=== PATIENT | female | born 1945 | race African-American/Black ===

== ENCOUNTER 2017-10-19 15:33 | Emergency (ER) | payer MEDICARE, MEDICAID ==
[~2017-10-19] VITALS: Ht 157.5 cm; Wt 69.0 kg
[~2017-10-19 15:33] MED LIST: ALBU6.7H2; ALLO100T PO; AMLO10TA4 PO; AP25 PO; ASCO-339 PO; ASPI-867 PO; ATOR20TA PO; CALC600T12 PO; CARV12.545 PO; COLC0.6T66 PO; FERR325T23 PO; FISH OIL PO; FLUT1DIS3 IH; FOLI-43 PO; FURO-151 PO; LORA-458 PO; MONT10TA24 PO; POTA10TA15 PO; VIT D2 PO; [UNRECOGNIZED DRUG - OTHER] PO
[2017-10-19] MEDS ORDERED: CYCLOBENZAPRINE 10MG TABLET PO ONE (18:15)
[2017-10-19 18:21] VITALS: BP 123/58
== END 2017-10-19 22:20 | disposition home or self-care (01) ==
LOC: ER 16:28
DX: M62.830 Muscle spasm of back (principal); I10 Essential (primary) hypertension; E11.9 Type 2 diabetes mellitus without complications; J45.909 Unspecified asthma, uncomplicated; Z88.0 Allergy status to penicillin; Z88.5 Allergy status to narcotic agent; Z79.82 Long term (current) use of aspirin
CPT/HCPCS: 76775; 99284

== ENCOUNTER 2017-11-08 01:54 | Emergency (ER) | payer MEDICARE, MEDICAID ==
[~2017-11-08] VITALS: Ht 157.5 cm; Wt 70.0 kg
[~2017-11-08 01:54] MED LIST changes: -ALBU6.7H2; +ALBU6.7H3
[2017-11-08] MEDS ORDERED: IPRATROPIUM BROMIDE (0.02%) 0.5MG/2.5ML NEB HHN STA (03:04)
[2017-11-08] MEDS ORDERED: ALBUTEROL (0.083%) 2.5MG/3ML NEB HHN STA (03:04)
[2017-11-08 03:49] LABS: HEMATOCRIT. 37.7 % (36.0-48.0); HEMOGLOBIN. 12.1 g/dL (12.0-16.0); MEAN CORPUSCULAR HEMOGLOBIN 23.8 pg (28.0-32.0); MEAN PLATELET VOLUME 8.9 fl (7.4-10.4); PLATELET 171 x1000/uL (130-400); RED CELL DISTRIBUTION WIDTH 17.5 % (11.6-14.6)
[2017-11-08 04:03] LABS: CARBON DIOXIDE 28 mEq/L (21-32); CHLORIDE 104 mEq/L (98-107); TROPONIN I < 0.02 ng/mL (0.00-0.04)
[2017-11-08] MEDS ORDERED: ALBUTEROL (0.5%) 2.5MG/0.5ML NEB HHN ONE (04:20)
[2017-11-08 04:40] VITALS: BP 132/65
[2017-11-08 05:13] LABS: PLATELET ESTIMATE NORMAL
== END 2017-11-08 06:15 | disposition home or self-care (01) ==
LOC: ER 01:54
DX: R05 Cough (principal); R06.02 Shortness of breath; R06.2 Wheezing; E11.9 Type 2 diabetes mellitus without complications; E78.00 Pure hypercholesterolemia, unspecified; I10 Essential (primary) hypertension; Z79.82 Long term (current) use of aspirin; Z88.0 Allergy status to penicillin; Z88.5 Allergy status to narcotic agent; Z95.0 Presence of cardiac pacemaker; Z95.810 Presence of automatic (implantable) cardiac defibrillator; Z98.890 Other specified postprocedural states
CPT/HCPCS: 36415; 71010; 80048; 83880; 84484; 85025; 93005; 94640; 99285; J7611

== ENCOUNTER 2019-01-13 08:48 | Emergency (ER) | payer MEDICARE, MEDICAID ==
[~2019-01-13] VITALS: Ht 157.5 cm; Wt 74.0 kg
[~2019-01-13 08:48] MED LIST changes: -ALBU6.7H3; +ALBU6.7H9; +ASA5EC PO; -ASPI-867 PO
[2019-01-13] MEDS ORDERED: HYDROCODONE/ACETAMINOPHEN 5/325MG TABLET PO STA (15:15)
[2019-01-13 16:54] LABS: BASOPHILS % 0.6 % (0.0-2.0); EOSINOPHILS % 2.7 % (0.0-5.0); HEMATOCRIT. 43.9 % (36.0-48.0); HEMOGLOBIN. 13.8 g/dL (12.0-16.0); LYMPHOCYTES % 26.6 % (20.0-50.0); MEAN CORPUSCULAR HEMOGLOBIN 23.2 pg (28.0-32.0); MEAN CORPUSCULAR VOLUME 73.8 fL (81.0-99.0); MEAN PLATELET VOLUME 8.7 fl (7.4-10.4); MONOCYTES % 10.2 % (2.0-8.0); NEUTROPHILS % 59.9 % (40.0-76.0); PLATELET 215 x1000/uL (130-400); RED BLOOD CELL COUNT 5.95 mill/uL (4.2-5.4); RED CELL DISTRIBUTION WIDTH 15.6 % (11.6-14.6)
[2019-01-13 16:56] LABS: CHLORIDE 105 mEq/L (98-107)
[2019-01-13 18:47] LABS: CLARITY URINE CLEAR (CLEAR); COLOR URINE YELLOW (YELLOW); KETONES URINE NEGATIVE (NEGATIVE); LEUKOCYTE ESTERASE URINE 2+ (NEGATIVE); NITRITE URINE POSITIVE (NEGATIVE); OCCULT BLOOD URINE NEGATIVE (NEGATIVE); PROTEIN URINE NEGATIVE (NEGATIVE); SPECIFIC GRAVITY URINE 1.013 (1.005-1.030); UROBILINOGEN URINE 0.2 E.U./dL (0.2-1.0)
[2019-01-13 20:01] VITALS: BP 143/76
== END 2019-01-13 20:02 | disposition home or self-care (01) ==
LOC: ER 09:05
DX: N39.0 Urinary tract infection, site not specified (principal); I11.9 Hypertensive heart disease without heart failure; E11.9 Type 2 diabetes mellitus without complications; E78.00 Pure hypercholesterolemia, unspecified; Z88.0 Allergy status to penicillin; Z88.5 Allergy status to narcotic agent; Z79.899 Other long term (current) drug therapy
CPT/HCPCS: 36415; 74176; 99284

== ENCOUNTER 2020-09-12 18:08 | Emergency (ER) | payer MEDICARE, MEDICAID ==
[~2020-09-12] VITALS: Ht 157.5 cm; Wt 72.0 kg
[~2020-09-12 18:08] MED LIST changes: -ASA5EC PO; +ASPI325T85 PO; -LORA-458 PO; +LORA10TA60 PO; -MONT10TA24 PO; +MONT10TA26 PO
[2020-09-12] MEDS ORDERED: ACETAMINOPHEN 325MG TABLET PO STA (19:12)
[2020-09-12 19:39] LABS: CLARITY URINE CLEAR (CLEAR); COLOR URINE YELLOW (YELLOW); KETONES URINE TRACE (NEGATIVE); LEUKOCYTE ESTERASE URINE 2+ (NEGATIVE); NITRITE URINE NEGATIVE (NEGATIVE); OCCULT BLOOD URINE NEGATIVE (NEGATIVE); PH URINE 5.5 (4.5-8.0); PROTEIN URINE 1+ (NEGATIVE); SPECIFIC GRAVITY URINE 1.027 (1.005-1.030)
[2020-09-12 20:14] LABS: BASOPHILS % 0.4 % (0.0-2.0); EOSINOPHILS % 3.4 % (0.0-5.0); HEMATOCRIT. 41.7 % (36.0-48.0); HEMOGLOBIN. 13.2 g/dL (12.0-16.0); LYMPHOCYTES % 32.2 % (20.0-50.0); MEAN CORPUSCULAR HEMOGLOBIN 23.2 pg (28.0-32.0); MEAN CORPUSCULAR VOLUME 73.7 fL (81.0-99.0); MONOCYTES % 8.7 % (2.0-8.0); NEUTROPHILS % 55.3 % (40.0-76.0); PLATELET 186 x1000/uL (130-400); RED BLOOD CELL COUNT 5.67 mill/uL (4.2-5.4); RED CELL DISTRIBUTION WIDTH 15.2 % (11.6-14.6)
[2020-09-12 20:17] LABS: CHLORIDE 107 mEq/L (98-107)
[2020-09-12 20:19] LABS: PROTHROMBIN TIME 10.5 sec (9.6-11.0)
[2020-09-12 21:45] VITALS: BP 134/78
== END 2020-09-12 21:58 | disposition home or self-care (01) ==
LOC: ER 18:08
DX: N39.0 Urinary tract infection, site not specified (principal); M54.5 Low back pain; E11.9 Type 2 diabetes mellitus without complications; I10 Essential (primary) hypertension; Z79.899 Other long term (current) drug therapy; Z88.0 Allergy status to penicillin; Z88.5 Allergy status to narcotic agent; Z95.0 Presence of cardiac pacemaker
CPT/HCPCS: 36415; 74176; 80053; 81003; 85025; 99284

== ENCOUNTER 2021-08-21 15:49 | Emergency (ER) | payer MEDICARE, MEDICAID ==
[~2021-08-21] VITALS: Ht 157.5 cm; Wt 72.0 kg
[~2021-08-21 15:49] MED LIST changes: +ASPI-867 PO; -ASPI325T85 PO; +CALC-1139 PO; -CALC600T12 PO; -MONT10TA26 PO; +MONT10TA32 PO
[2021-08-21] MEDS ORDERED: HYDR99LO TP (18:24)
[2021-08-21 18:51] VITALS: BP 149/75
== END 2021-08-21 18:52 | disposition home or self-care (01) ==
LOC: ER 15:49
DX: L25.9 Unspecified contact dermatitis, unspecified cause (principal); E11.9 Type 2 diabetes mellitus without complications; I10 Essential (primary) hypertension; Z87.440 Personal history of urinary (tract) infections; Z95.0 Presence of cardiac pacemaker; F11.10 Opioid abuse, uncomplicated; Z79.899 Other long term (current) drug therapy; Z88.0 Allergy status to penicillin; Z88.5 Allergy status to narcotic agent
CPT/HCPCS: 99282

== ENCOUNTER 2021-09-08 09:10 | Inpatient (IN) | payer MEDICARE, MEDICAID ==
[~2021-09-08] VITALS: Ht 157.5 cm; Wt 72.6 kg
[~2021-09-08 09:10] MED LIST changes: +HYDR99LO TP
[2021-09-08] MEDS ORDERED: ACETAMINOPHEN 325MG TABLET PO STA (10:38)
[2021-09-08 11:40] LABS: BASOPHILS % 0.7 % (0.0-2.0); EOSINOPHILS % 1.7 % (0.0-5.0); HEMATOCRIT. 43.3 % (36.0-48.0); HEMOGLOBIN. 13.5 g/dL (12.0-16.0); LYMPHOCYTES % 18.8 % (20.0-50.0); MEAN CORPUSCULAR HEMOGLOBIN 22.9 pg (28.0-32.0); MEAN CORPUSCULAR VOLUME 73.5 fL (81.0-99.0); MEAN PLATELET VOLUME 8.5 fl (7.4-10.4); MONOCYTES % 11.3 % (2.0-8.0); NEUTROPHILS % 67.5 % (40.0-76.0); PLATELET 253 x1000/uL (130-400); RED BLOOD CELL COUNT 5.89 mill/uL (4.2-5.4)
[2021-09-08 11:47] LABS: CHLORIDE 107 mEq/L (98-107)
[2021-09-08 14:11] LABS: CLARITY URINE CLEAR (CLEAR); COLOR URINE YELLOW (YELLOW); KETONES URINE TRACE (NEGATIVE); LEUKOCYTE ESTERASE URINE 2+ (NEGATIVE); NITRITE URINE NEGATIVE (NEGATIVE); OCCULT BLOOD URINE NEGATIVE (NEGATIVE); PH URINE 5.5 (4.5-8.0); PROTEIN URINE NEGATIVE (NEGATIVE); SPECIFIC GRAVITY URINE 1.018 (1.005-1.030); UROBILINOGEN URINE 0.2 E.U./dL (0.2-1.0)
[2021-09-08] MEDS ORDERED: ASPIRIN 81MG TABLET PO ONE (14:15)
[2021-09-08] MEDS ORDERED: NITROGLYCERIN 0.4MG TABLET SL SL PRN (14:15)
[2021-09-08 14:25] LABS: D-DIMER 0.4 mg/L FEU (<0.50); PARTIAL THROMBOPLASTIN TIME 30.5 sec (23.4-31.0)
[2021-09-08] MEDS ORDERED: FUROSEMIDE 40MG/4ML VIAL IVP ONE (15:45)
[2021-09-08] MEDS ORDERED: ONDANSETRON HCL 4MG/2ML INJ IV PRN (16:30)
[2021-09-08] MEDS ORDERED: MAGNESIUM/ALUMINUM HYDROXIDE/SIMETHICONE 30ML UDC PO PRN (16:30)
[2021-09-08] MEDS ORDERED: ACETAMINOPHEN 325MG TABLET PO PRN (16:30)
[2021-09-08] MEDS ORDERED: IPRATROPIUM/ALBUTEROL 0.5-3(2.5)MG/3ML NEB NEB PRN (16:30)
[2021-09-08] MEDS ORDERED: DOCUSATE SODIUM 100MG CAPSULE PO PRN (16:30)
[2021-09-08] MEDS ORDERED: ACETAMINOPHEN 650MG SUPP PR PRN (16:30)
[2021-09-08] MEDS ORDERED: GUAIFENESIN 200MG/10ML SUGAR FREE UDC PO PRN (16:30)
[2021-09-08] MEDS ORDERED: NA PHOS,M-B/NA PHOS,DI-BA ENEMA 118ML PR PRN (16:30)
[2021-09-08] MEDS ORDERED: DIPHENHYDRAMINE 50MG/ML VIAL IV PRN (16:30)
[2021-09-08] MEDS ORDERED: LEVOFLOXACIN 500MG PREMIX 100 ML IV NR (16:30)
[2021-09-08] MEDS ORDERED: LORAZEPAM 0.5MG TABLET PO PRN (16:30)
[2021-09-08] MEDS ORDERED: HYDROCODONE/ACETAMINOPHEN 5/325MG TABLET PO PRN (16:30)
[2021-09-08] MEDS ORDERED: CLONIDINE 0.1MG TABLET PO PRN (16:30)
[2021-09-08] MEDS ORDERED: DEXTROSE 50% WATER 50ML SYRINGE IV PRN (17:00)
[2021-09-08] MEDS: BLOOD SUGAR DIAGNOSTIC STRIP TEST SCH (17:00)
[2021-09-08] MEDS: INSULIN LISPRO 100 UNITS/ML SUBCUT SCH ×2 (18:20→21:00)
[2021-09-08] MEDS ORDERED: FAMOTIDINE 20MG TABLET PO SCH (21:00)
[2021-09-08] MEDS ORDERED: ENOXAPARIN 30MG/0.3ML SYR SUBCUT SCH (21:00)
[2021-09-08] MEDS: GABAPENTIN 100MG CAPSULE PO SCH (22:00)
[2021-09-09 00:25] VITALS: BP 102/66
[2021-09-09 00:30] VITALS: BP 102/66
[2021-09-09 04:00] VITALS: BP 114/60
[2021-09-09] MEDS: GABAPENTIN 100MG CAPSULE PO SCH ×2 (06:00→13:57)
[2021-09-09] MEDS: BLOOD SUGAR DIAGNOSTIC STRIP TEST SCH ×2 (06:16→12:20)
[2021-09-09 06:23] LABS: BASOPHILS % 0.3 % (0.0-2.0); EOSINOPHILS % 0.9 % (0.0-5.0); HEMOGLOBIN. 13.2 g/dL (12.0-16.0); LYMPHOCYTES % 22.4 % (20.0-50.0); MEAN CORPUSCULAR HEMOGLOBIN 23.3 pg (28.0-32.0); MEAN CORPUSCULAR VOLUME 72.3 fL (81.0-99.0); MONOCYTES % 12.9 % (2.0-8.0); NEUTROPHILS % 63.5 % (40.0-76.0); PLATELET 237 x1000/uL (130-400); RED BLOOD CELL COUNT 5.67 mill/uL (4.2-5.4); RED CELL DISTRIBUTION WIDTH 14.5 % (11.6-14.6)
[2021-09-09 06:34] LABS: CHLORIDE 103 mEq/L (98-107)
[2021-09-09 06:52] LABS: HDL CHOLESTEROL 36 mg/dL (40-59); T4 FREE 0.94 ng/dL (0.76-1.46)
[2021-09-09 06:53] LABS: LDL CHOLESTEROL 122 mg/dL (5-100)
[2021-09-09 06:54] LABS: CREATINE KINASE 106 IU/L (26-192); CREATINE KINASE MB FRACTION < 1.0 ng/mL (0.5-3.6)
[2021-09-09] MEDS: INSULIN LISPRO 100 UNITS/ML SUBCUT SCH ×2 (07:50→12:45)
[2021-09-09 08:00] VITALS: BP 103/52
[2021-09-09] MEDS ORDERED: ASPIRIN 81MG EC TABLET PO SCH (09:00)
[2021-09-09 09:24] LABS: *AMPHETAMINES SCREEN URINE NEGATIVE (NEGATIVE); *BARBITURATES SCREEN URINE NEGATIVE (NEGATIVE)
[2021-09-09 09:25] LABS: *BENZODIAZEPINES SCREEN URINE NEGATIVE (NEGATIVE); *COCAINE SCREEN URINE NEGATIVE (NEGATIVE); CANNABINOID URINE SCREEN NEGATIVE (NEGATIVE); METHADONE URINE SCREEN NEGATIVE (NEGATIVE); OPIATES URINE SCREEN PRESUMTIVE POSITIVE (NEGATIVE); PHENCYCLIDINE URINE SCREEN NEGATIVE (NEGATIVE)
[2021-09-09 12:45] VITALS: BP 118/63
[2021-09-09] MEDS ORDERED: GABA-529 MT (13:39)
[2021-09-09] MEDS ORDERED: HYDR-4001 MT (13:39)
[2021-09-09] MEDS ORDERED: LEVO250T58 MT (13:39)
[2021-09-09 15:10] VITALS: BP 118/63
[2021-09-09] MEDS ORDERED: LEVOFLOXACIN 250MG PREMIX 50 ML IV SCH (17:00)
== END 2021-09-09 16:05 | disposition home or self-care (01) | DRG 292 ==
LOC: ER 09:10 → 6WST 16:00 → EDBEDREQ 16:05 → SUPCPDRO 16:25 → ENRESERV 21:49
PROVIDERS: ADMIT Internal Medicine; ATTEND Internal Medicine
DX: I11.0 Hypertensive heart disease with heart failure (principal); N39.0 Urinary tract infection, site not specified; I42.9 Cardiomyopathy, unspecified; I50.22 Chronic systolic (congestive) heart failure; M17.0 Bilateral primary osteoarthritis of knee; Z20.822 Contact with and (suspected) exposure to COVID-19; I25.10 Atherosclerotic heart disease of native coronary artery without angina pectoris; E78.5 Hyperlipidemia, unspecified; E11.40 Type 2 diabetes mellitus with diabetic neuropathy, unspecified; Z87.440 Personal history of urinary (tract) infections; Z95.0 Presence of cardiac pacemaker; Z88.0 Allergy status to penicillin; Z88.6 Allergy status to analgesic agent; Z79.899 Other long term (current) drug therapy; Z79.82 Long term (current) use of aspirin; Z86.73 Personal history of transient ischemic attack (TIA), and cerebral infarction without residual deficits
CPT/HCPCS: 36415; 71045; 73560; 80053; 80061; 80305; 81003; 82550; 82553; 82962; 83036; 83880; 84439; 84443; 84484; 85025; 85379; 87426; 93005; 93306; 93970; 97162; 99285; J1650; J1940; J1956; J7042

== ENCOUNTER 2022-10-27 13:01 | Emergency (ER) | payer MEDICARE, MEDICAID ==
[~2022-10-27] VITALS: Ht 162.6 cm; Wt 76.0 kg
[~2022-10-27 13:01] MED LIST changes: +ALBU6.7H3; -ALBU6.7H9; +GABA-529 MT; +HYDR-4001 MT; +LEVO250T74 MT; +LORA-1349 PO; -LORA10TA60 PO; +MONT-39 PO; -MONT10TA32 PO; -POTA10TA15 PO
[2022-10-27 13:13] VITALS: BP 118/66
[2022-10-27] MEDS ORDERED: ACETAMINOPHEN 325MG TABLET PO ONE (15:15)
== END 2022-10-27 18:21 | disposition home or self-care (01) ==
LOC: ER 13:01
DX: S93.402A Sprain of unspecified ligament of left ankle, initial encounter (principal); I10 Essential (primary) hypertension; E11.9 Type 2 diabetes mellitus without complications; Z88.0 Allergy status to penicillin; Z88.5 Allergy status to narcotic agent; Z79.899 Other long term (current) drug therapy; X58.XXXA Exposure to other specified factors, initial encounter; Y93.89 Activity, other specified; Y92.89 Other specified places as the place of occurrence of the external cause; Y99.8 Other external cause status
CPT/HCPCS: 73610; 99283

== ENCOUNTER 2022-11-17 11:21 | Emergency (ER) | payer MEDICARE, MEDICAID ==
[~2022-11-17] VITALS: Ht 157.5 cm; Wt 70.0 kg
[2022-11-17 11:35] VITALS: BP 159/79
[2022-11-17] MEDS ORDERED: GUAIFENESIN 600MG ER TABLET PO SCH (14:00)
[2022-11-17] MEDS ORDERED: GUAI-450 MT (14:13)
== END 2022-11-17 15:43 | disposition home or self-care (01) ==
LOC: ER 11:51
DX: J06.9 Acute upper respiratory infection, unspecified (principal); E78.00 Pure hypercholesterolemia, unspecified; I10 Essential (primary) hypertension; Z95.0 Presence of cardiac pacemaker; Z79.899 Other long term (current) drug therapy; Z88.0 Allergy status to penicillin; Z88.5 Allergy status to narcotic agent; Z20.822 Contact with and (suspected) exposure to COVID-19
CPT/HCPCS: 71045; 87426; 87804; 99284; C9803

== ENCOUNTER 2022-11-19 12:02 | Emergency (ER) | payer MEDICARE, MEDICAID ==
[~2022-11-19] VITALS: Ht 157.5 cm; Wt 71.5 kg
[~2022-11-19 12:02] MED LIST changes: +GUAI-450 MT
[2022-11-19 12:09] VITALS: BP 108/62
[2022-11-19] MEDS ORDERED: AZIT250T12 MT (17:51)
[2022-11-19 17:52] LABS: CHLORIDE 104 mEq/L (98-107)
[2022-11-19 17:53] LABS: HEMATOCRIT. 42.6 % (36.0-48.0); HEMOGLOBIN. 13.3 g/dL (12.0-16.0); MEAN CORPUSCULAR HEMOGLOBIN 22.9 pg (28.0-32.0); MEAN CORPUSCULAR VOLUME 73.4 fL (81.0-99.0); MEAN PLATELET VOLUME 8.8 fl (7.4-10.4); PLATELET 201 x1000/uL (130-400); RED CELL DISTRIBUTION WIDTH 15.4 % (11.6-14.6)
[2022-11-19 19:07] LABS: PLATELET ESTIMATE NORMAL
== END 2022-11-19 18:27 | disposition home or self-care (01) ==
LOC: ER 12:29
DX: J18.9 Pneumonia, unspecified organism (principal); R05.9 Cough, unspecified; J45.909 Unspecified asthma, uncomplicated; E78.00 Pure hypercholesterolemia, unspecified; I10 Essential (primary) hypertension; Z95.0 Presence of cardiac pacemaker; Z79.899 Other long term (current) drug therapy; Z88.0 Allergy status to penicillin
CPT/HCPCS: 36415; 71045; 80053; 83880; 84484; 85025; 93005; 99285

== ENCOUNTER 2024-04-27 20:46 | Emergency (ER) | payer MEDICARE, MEDICAID ==
[~2024-04-27] VITALS: Ht 157.5 cm; Wt 66.0 kg
[~2024-04-27 20:46] MED LIST changes: -ALBU6.7H3; -AMLO10TA4 PO; +AMLO5TAB88 PO; -AP25 PO; -ASCO-339 PO; -ASPI-867 PO; -ATOR20TA PO; -CALC-1139 PO; -CARV12.545 PO; -COLC0.6T66 PO; +COR3 PO; +FAMO20TA8 PO; -FERR325T23 PO; +HYDR50TA39 PO; -LEVO250T74 MT; +LEVO50TA8 PO; +LIP40 PO; -[UNRECOGNIZED DRUG - OTHER] PO
[2024-04-27 20:55] VITALS: TEMP 98.3; O2SAT 100
[2024-04-27] MEDS ORDERED: KETOROLAC 60MG/2ML VIAL IM ONE (21:30)
[2024-04-27 21:31] LABS: BASOPHILS % 0.4 % (0.0-2.0); DIFFERENTIAL COMMENT 0; EOSINOPHILS % 5.1 % (0.0-5.0); HEMATOCRIT. 34.7 % (36.0-48.0); HEMOGLOBIN. 10.8 g/dL (12.0-16.0); LYMPHOCYTES % 34.3 % (20.0-50.0); MEAN CORPUSCULAR HEMOGLOBIN 24.2 pg (28.0-32.0); MEAN CORPUSCULAR HGB CONC 31.2 g/dL (31.0-37.0); MEAN CORPUSCULAR VOLUME 77.7 fL (81.0-99.0); MEAN PLATELET VOLUME 8.6 fl (7.4-10.4); MONOCYTES % 9.3 % (2.0-8.0); NEUTROPHILS % 50.9 % (40.0-76.0); PLATELET 215 x1000/uL (130-400); RED BLOOD CELL COUNT 4.47 mill/uL (4.2-5.4); RED CELL DISTRIBUTION WIDTH 17.1 % (11.6-14.6); WHITE BLOOD COUNT 6.8 x1000/uL (4.5-11.0)
[2024-04-27 21:37] LABS: CHLORIDE 104 mEq/L (98-107); POTASSIUM 4.6 mEq/L (3.5-5.1); SODIUM 134 mEq/L (136-145)
[2024-04-27 21:38] LABS: CARBON DIOXIDE 22 mEq/L (21-32)
[2024-04-27 21:43] LABS: GLUCOSE 121 mg/dL (70-105); UREA NITROGEN BLOOD 36 mg/dL (9-23)
[2024-04-27 21:44] LABS: TROPONIN I HIGH SENSITIVITY 12 ng/L (3.0-34)
[2024-04-27 21:45] LABS: CREATININE 2.9 mg/dL (0.6-1.0)
[2024-04-27] MEDS ORDERED: KETOROLAC 60MG/2ML VIAL IM NR (22:00)
[2024-04-27] MEDS: LIDOCAINE 5% PATCH TOP SCH (22:09)
[2024-04-27] MEDS: KETOROLAC 30MG/ML VIAL IM NR (22:44)
[2024-04-27 23:00] VITALS: BP 137/62; PULSE 87; RESP 18
[2024-04-27] MEDS ORDERED: NAPR-681 MT (23:39)
== END 2024-04-28 00:04 | disposition home or self-care (01) ==
LOC: ER 20:46
DX: M25.511 Pain in right shoulder (principal); M54.6 Pain in thoracic spine; I10 Essential (primary) hypertension; Z95.0 Presence of cardiac pacemaker; Z88.0 Allergy status to penicillin
CPT/HCPCS: 99285; 71045; 80048; 83880; 85025; 84484; 36415; 73030; 93005; 96372; J1885

== ENCOUNTER 2024-12-10 23:56 | Emergency (ER) | payer MEDICARE, MEDICAID ==
[~2024-12-10] VITALS: Ht 157.5 cm; Wt 68.0 kg
[~2024-12-10 23:56] MED LIST changes: +NAPR-681 MT
[2024-12-11 00:23] VITALS: O2SAT 100
[2024-12-11] MEDS ORDERED: HYDR453.3 TP (03:47)
[2024-12-11 04:59] VITALS: BP 148/82; PULSE 70; RESP 16; TEMP 36.78072; O2SAT 100
== END 2024-12-11 05:27 | disposition home or self-care (01) ==
LOC: ER 23:56
DX: R21 Rash and other nonspecific skin eruption (principal); I10 Essential (primary) hypertension; Z79.1 Long term (current) use of non-steroidal anti-inflammatories (NSAID); Z79.51 Long term (current) use of inhaled steroids; Z79.890 Hormone replacement therapy; Z79.899 Other long term (current) drug therapy; Z88.0 Allergy status to penicillin; Z88.5 Allergy status to narcotic agent; Z95.0 Presence of cardiac pacemaker
CPT/HCPCS: 93005; 99283

== ENCOUNTER 2025-08-19 14:23 | Inpatient (IN) | payer MEDICARE, MEDICAID ==
[~2025-08-19] VITALS: Ht 157.5 cm; Wt 70.3 kg
[~2025-08-19 14:23] MED LIST changes: +HYDR453.3 TP
[2025-08-19 14:28] VITALS: O2SAT 98
[2025-08-19 16:14] LABS: BASOPHILS % 0.4 % (0.0-2.0); EOSINOPHILS % 3.6 % (0.0-5.0); HEMATOCRIT. 39.5 % (36.0-48.0); HEMOGLOBIN. 12.1 g/dL (12.0-16.0); LYMPHOCYTES % 22.5 % (20.0-50.0); MEAN PLATELET VOLUME 8.5 fl (7.4-10.4); MONOCYTES % 9.9 % (2.0-8.0); NEUTROPHILS % 63.6 % (40.0-76.0); PLATELET 261 x1000/uL (130-400); RED BLOOD CELL COUNT 5.28 mill/uL (4.2-5.4); RED CELL DISTRIBUTION WIDTH 15.8 % (11.6-14.6)
[2025-08-19 16:34] LABS: CREATININE 2.2 mg/dL (0.6-1.0); UREA NITROGEN BLOOD 19 mg/dL (9-23)
[2025-08-19 16:36] LABS: ASPARTATE AMINOTRANSFERASE 10 IU/L (<34); BILIRUBIN DIRECT 0.1 mg/dL (<=3.0)
[2025-08-19 16:37] LABS: BILIRUBIN TOTAL 0.3 mg/dL (0.1-1.0); PROTEIN TOTAL 7.3 g/dL (6.0-8.3)
[2025-08-19 16:47] LABS: CLARITY URINE CLOUDY (CLEAR); COLOR URINE YELLOW (YELLOW); GLUCOSE URINE 2+ (NEGATIVE); KETONES URINE TRACE (NEGATIVE); LEUKOCYTE ESTERASE URINE 1+ (NEGATIVE); NITRITE URINE NEGATIVE (NEGATIVE); OCCULT BLOOD URINE NEGATIVE (NEGATIVE); PH URINE 5.0 (4.5-8.0); PROTEIN URINE NEGATIVE (NEGATIVE); SPECIFIC GRAVITY URINE 1.017 (1.005-1.030); UROBILINOGEN URINE 0.2 E.U./dL (0.2-1.0)
[2025-08-19 17:12] LABS: BACTERIA URINE 2+; RBC URINE 0-2 /hpf (0-2); SQUAMOUS EPITHELIAL CELL URINE 1+ /lpf (RARE/1+)
[2025-08-19 19:01] LABS: TROPONIN I HIGH SENSITIVITY 12 ng/L (3.0-34)
[2025-08-19 21:33] VITALS: BP 116/64; PULSE 77; RESP 19; TEMP 37.0296
[2025-08-19 22:00] VITALS: BP 116/64; PULSE 88; RESP 18; TEMP 36.2; O2SAT 100
[2025-08-20] VITALS: BP 119/60; PULSE 85; RESP 11; TEMP 36.7; O2SAT 100
[2025-08-20] MEDS: LOPERAMIDE HCL 2MG CAPSULE PO NR
[2025-08-20] MEDS ORDERED: IPRATROPIUM/ALBUTEROL 0.5-3(2.5)MG/3ML NEB HHN PRN
[2025-08-20] MEDS ORDERED: ACETAMINOPHEN 325MG TABLET PO PRN
[2025-08-20 04:00] VITALS: BP 114/74; PULSE 76; RESP 15; TEMP 36.8; O2SAT 100
[2025-08-20] MEDS: METRONIDAZOLE 500 MG PREMIX 100 ML IV SCH (07:01)
[2025-08-20 07:04] LABS: BASOPHILS % 0.3 % (0.0-2.0); EOSINOPHILS % 4.8 % (0.0-5.0); HEMATOCRIT. 40.0 % (36.0-48.0); HEMOGLOBIN. 12.4 g/dL (12.0-16.0); LYMPHOCYTES % 17.8 % (20.0-50.0); MEAN PLATELET VOLUME 8.2 fl (7.4-10.4); MONOCYTES % 8.2 % (2.0-8.0); NEUTROPHILS % 68.9 % (40.0-76.0); PLATELET 242 x1000/uL (130-400); RED BLOOD CELL COUNT 5.45 mill/uL (4.2-5.4); RED CELL DISTRIBUTION WIDTH 15.6 % (11.6-14.6)
[2025-08-20 07:27] LABS: CREATININE 1.7 mg/dL (0.6-1.0); TRIGLYCERIDE 201 mg/dL (0-150); UREA NITROGEN BLOOD 19 mg/dL (9-23)
[2025-08-20 07:28] LABS: ASPARTATE AMINOTRANSFERASE 12 IU/L (<34); LDL CHOLESTEROL 80 mg/dL (5-100)
[2025-08-20 07:29] LABS: BILIRUBIN DIRECT 0.1 mg/dL (<=3.0); BILIRUBIN TOTAL 0.3 mg/dL (0.1-1.0); PROTEIN TOTAL 7.3 g/dL (6.0-8.3)
[2025-08-20 07:30] LABS: T4 FREE 0.92 ng/dL (0.89-1.76)
[2025-08-20 08:00] VITALS: BP 119/60; PULSE 77; RESP 21; TEMP 36.5; O2SAT 100
[2025-08-20] MEDS: ASPIRIN 81MG EC TABLET PO SCH (08:54)
[2025-08-20] MEDS: ALLOPURINOL 100 MG TABLET PO SCH (08:54)
[2025-08-20] MEDS: LEVOFLOXACIN 250MG TABLET PO SCH (08:55)
[2025-08-20] MEDS: CARVEDILOL 3.125 MG TABLET PO SCH (08:55)
[2025-08-20] MEDS: AMLODIPINE 5MG TABLET PO SCH (08:55)
[2025-08-20] MEDS: HEPARIN 5000 UNITS/ML VIAL SUBCUT SCH (08:56)
[2025-08-20 12:00] VITALS: BP 108/63; PULSE 73; RESP 19; TEMP 36.9; O2SAT 100
[2025-08-20 16:00] VITALS: BP 124/62; PULSE 73; RESP 15; TEMP 36.7; O2SAT 100
[2025-08-20 20:00] VITALS: BP 127/62; PULSE 82; RESP 18; TEMP 36.3; O2SAT 0
[2025-08-20] MEDS: ATORVASTATIN CALCIUM 40MG TABLET PO SCH (20:27)
[2025-08-21] MEDS: HYDROCODONE/ACETAMINOPHEN 5/325MG TABLET PO PRN (00:53)
[2025-08-21 04:00] VITALS: BP 120/72; PULSE 78; RESP 22; TEMP 36.4; O2SAT 100
[2025-08-21] MEDS: HYDRALAZINE HCL 25MG TABLET PO SCH (05:55)
[2025-08-21 08:00] VITALS: BP 115/64; PULSE 76; RESP 29; TEMP 36.4; O2SAT 95
[2025-08-21 12:00] VITALS: BP 130/64; PULSE 72; RESP 16; TEMP 36.5; O2SAT 94
[2025-08-21 16:00] VITALS: BP 110/55; PULSE 73; RESP 19; TEMP 36.7; O2SAT 100
[2025-08-21] MEDS ORDERED: METR-167 MT (17:11)
[2025-08-21] MEDS ORDERED: LEVO250T74 MT (17:11)
[2025-08-21 18:07] VITALS: BP 110/55; PULSE 73; RESP 19; TEMP 98
== END 2025-08-21 18:58 | disposition home or self-care (01) | DRG 392 ==
LOC: ER 14:31 → 3WST 18:43 → EDBEDREQTM 18:45 → EDBEDREQ 18:45 → ENRESERV 20:31
PROVIDERS: ADMIT Internal Medicine; ATTEND Internal Medicine
DX: A08.4 Viral intestinal infection, unspecified (principal); I13.0 Hypertensive heart and chronic kidney disease with heart failure and stage 1 through stage 4 chronic kidney disease, or unspecified chronic kidney disease; I50.22 Chronic systolic (congestive) heart failure; N17.9 Acute kidney failure, unspecified; N39.0 Urinary tract infection, site not specified; M10.9 Gout, unspecified; N28.89 Other specified disorders of kidney and ureter; D63.8 Anemia in other chronic diseases classified elsewhere; N18.32 Chronic kidney disease, stage 3b; E11.22 Type 2 diabetes mellitus with diabetic chronic kidney disease; I25.10 Atherosclerotic heart disease of native coronary artery without angina pectoris; Z79.899 Other long term (current) drug therapy; Z85.528 Personal history of other malignant neoplasm of kidney; Z88.0 Allergy status to penicillin; Z88.5 Allergy status to narcotic agent; Z90.5 Acquired absence of kidney; Z95.0 Presence of cardiac pacemaker
CPT/HCPCS: 36415; 74176; 80048; 80061; 80076; 81003; 83735; 84439; 84443; 84484; 85025; 86850; 86900; 87015; 87045; 87427; 87449; 93005; 99285; J1644; J3490